=== PATIENT | female | born 1995 | race Caucasian/White ===

== ENCOUNTER 2024-07-11 01:30 | Inpatient (IN) | payer MEDICAID, SELFPAY ==
[2024-07-11] VITALS (119 sets, daily range): BP systolic 105–134; BP diastolic 56–90; PULSE 69–142; RESP 16–100; TEMP 36.4–36.9; O2SAT 96–100; BMI 30.7
[2024-07-11 02:49] LABS: Basophils % (Auto) 0 % (0-2.5); Eosinophils # (Auto) 0.1 Thou/mm3 (0.0-0.5); Eosinophils % (Auto) 1 % (0-10); Hematocrit 31.8 % (36.0-46.0); Hemoglobin 10.7 g/dL (12.0-16.0); Immature Granulocytes % (Auto) 1 % (0-0); Immature Granulocytes Auto 0.06 Thou/mm3 (0.00-0.00); Lymphocytes # (Auto) 2.6 Thou/mm3 (1.0-4.8); Lymphocytes % (Auto) 21 % (10-50); Mean Corpuscular HGB Conc 33.6 g/dl (31.0-37.0); Mean Corpuscular Hemoglobin 26.4 pg (25.0-35.0); Mean Corpuscular Volume 79 fL (80-100); Monocytes # (Auto) 0.7 Thou/mm3 (0.0-0.8); Monocytes % (Auto) 6 % (0-12); Neutrophils % (Auto) 72 % (37-80); Nucleated Red Blood Cell % 0 /100 WBC (0); Platelet Count 143 Thou/mm3 (140-440); RDW Standard Deviation 35.3 fL (36.4-46.3); Red Blood Count 4.05 Miln/mm3 (4.00-5.20); White Blood Count 12.4 Thou/mm3 (3.6-11.0)
[2024-07-11 02:52] LABS: ROM Kit Lot # 57809118; ROM Swab Mixed By: BDR; Rupture of Fetal Membranes Negative (Negative); Swb Mxed in Solvent 1 min? Yes
--- NOTE | 2024-07-11 07:30 | PD.LDHP ---
Documentation for date of: 07/11/24 OB Labor/Induct. HPI History of Present Illness Chief complaint: labor : 2 Para: 1 Term pregnancies: 1 pregnancies: 0 Living children: 1 History of Abortions: Spontaneous and Elective: 0 History of Vaginal deliveries: 1 History of sections: No History of : No Date of last menstrual period: 10/11/23 CADEN: 07/17/24 Gestational Age (weeks): 39 Gestational Age (days): 1 Gestational age based on last menstrual period: 39 History of present illness: 29-year-old 2 para 1 admit to labor and delivery with complaints of contractions since 2300. Patient was followed at [facility] care. First visit was 15 weeks 3. Last period October 11, 2023. Estimated due date July 17, 2024. Patient is O+, antibody screen negative, RPR nonreactive, rubella immune, hepatitis B negative, hep C negative, HIV negative, GC and Chlamydia were negative. GBS negative. Patient did not do 1 hour GTT. GBS was negative. Denies social habits. Denies surgery. Denies History of Present Dating criteria: LMP confirmed by 2nd trimester US Adequate Care: Yes Ultrasounds: normal 1st trimester US Obstetrical complications: none Medical complications: none Labs Labs: Negative: Hepatitis B, HIV, Chlamydia, Gonorrhea and Group Beta Strep Review of Systems Review of Systems Systems Reviewed: All systems reviewed, normal except as documented Past Medical History Surgical History SURGICAL: Negative Section Meds Home Medications and Allergies Home Medications ?Medication ?Instructions ?Recorded ?Confirmed ?Type vitamin no.[id number]-dha 1 cap PO 1XD 06/27/23 06/27/23 History 27 mg iron-1 mg-200 mg capsule Allergies Allergy/AdvReac Type Severity Reaction Status Date / Time No Known Allergies Allergy Verified 06/27/23 12:05 OB Exam Physical Exam Vital signs: Temp Pulse Resp BP Pulse Ox 97.9 F 80 18 125/66 99 07/11/24 01:42 07/11/24 06:16 07/11/24 01:42 07/11/24 06:16 07/11/24 07:28 Narrative: Normal heart rate and rhythm. Lungs clear no wheezes. Gravid abdomen. Gynecoid pelvis. Estimated weight 6 pounds 14 ounces. Vaginal exam on admission was 70%, 5, -2. Vertex. Bag water intact. heart rate category 1 with accelerations and moderate regular contractions Detailed Labor and Delivery Exam Dilation (cm): 5 Effacement (%): 70 Cervix position: mid station: -1 Consistency: soft Presentation: Vertex Cervical ripeness score: 8 Baseline heart rate: 135 monitor accelerations: 15x15 monitor decelerations: None intermodal dispatcher variability: Moderate (11-25) Contraction frequency (min): 3-4 Contraction duration (sec): mod Tachysystole: No Contraction intensity: Moderate OB Results Labs 07/11/24 02:21 Labs: Short CBC 07/11/24 Range/Units 02:21 WBC 12.4 H (3.6-11.0) Thou/mm3 Hgb 10.7 L (12.0-16.0) g/dL Hct 31.8 L (36.0-46.0) % Plt Count 143 (140-440) Thou/mm3 Impressions Impression: labor OB Assessment & Plan Additional Plan Induction method: none Plan: anticipate NVD and consult MD collier
[2024-07-11] MEDS: OXYTOCIN in NS 20 units 20 UNIT/1,000 ML BAG 125 UNIT IV ×2 (08:23→14:22)
[2024-07-11] MEDS: LIDOCAINE HCL 1% 20 ML VIAL INFL (08:24)
[2024-07-11] MEDS: BENZO/LANO/ALOE (Dermoplast) 60 GM CAN 1 SPRAY TOP (09:08)
[2024-07-11] MEDS: KETOROLAC INJ 30 MG/ML VIAL IVP (09:09)
--- NOTE | 2024-07-11 09:34 | PD.LDDELS ---
Data (Man) Data Hx Section: No : 2 Para: 1 Term: 1 : 0 Livin : 0 Delivery Data (Man) Labor Data ROM Date: 07/11/24 ROM Time: 05:20 Rupture Type: SROM Amniotic Fluid: Clear Delivery Data Labor Onset Stage 1 Date: 07/10/24 Labor Onset Stage 1 Time: 23:00 Labor Onset Stage 2 Date: 07/11/24 Labor Onset Stage 2 Time: 08:13 Delivery Date: 07/11/24 Delivery Time: 08:19 Placenta Delivery Date: 07/11/24 Placenta Delivery Time: 08: Delivered by: Marisol Tompkins Delivery nurse: Zoie Luis Other staff at delivery: Nursery Nurse Other staff at delivery: Arlin Apple Delivery Method Delivery: Vaginal Delivery Type: Spontaneous Presentation: Vertex Position: SEMAJ Anesthesia Type Primary Anesthesia: None Delivery Room Medications Other Intrapartum Medications: Yes Placenta Placenta Delivery: Spontaneous Cord Sample: Cord Blood Obtained Episiotomy Episiotomy: None EBL Estimated blood loss (ml): 400 Umbilical Cord Umbilical Vessels: 3 Nuchal Cord: None Body Cord: None Additional Procedures Patient is a 29yo [id number] s/p uncomplicated at term after presenting in active labor, delivering at 0819 on 07/11/2024. She progressed without pitocin augmentation to C/C/0 at which point she began pushing. She did not desire an epidural. With good maternal pushing efforts, infant's head delivered OA and restituted MICKIE. Left anterior shoulder delivered easily followed by posterior shoulder and corpus. had spontaneous cry and was vigorous. Apgars 9/9 . Infant placed on maternal abdomen where nose/mouth were suctioned and dried/stimulated. After approximately 3 minutes (patient desired delayed cord clamping), cord was clamped x2 and cut by FOB. Cord blood collected for typing. With fundal massage and cord traction, placenta delivered spontaneously and intact with 3 vessel centrally inserted cord. Fundal massage performed and IV pitocin given per protocol with fundus then firm at u-2cm and hemostasis noted. Inspection of perineum and vagina revealed small bilateral labial lacerations and a 2nd degree midline perineal laceration which were repaired in routine fashion with 4-0 and 3-0 vicryl, respectively, after anesthetizing with 1% lidocaine- total reapproximation and hemostasis achieved. Small trickle of blood, so sweep just within cervix performed which retrieved only a small clot. All counts correct x2. Mom and infant were doing well when I left the room. Marisol Tompkins MD Data (Man) Data Gender: Male Infant Weight Grams: 3400 1 Minute Total: 9 5 Minute Total: 9
[2024-07-11] MEDS: ACETAMINOPHEN 325 MG TABLET 650 MG PO ×2 (11:13→20:00)
[2024-07-11] MEDS: PRENATAL VITAMIN/FE FUM/FA TABLET 1 TAB PO (11:13)
[2024-07-11] MEDS: IBUPROFEN TAB 400 MG TABLET 800 MG PO (14:24)
[2024-07-11 14:59] LABS: Syphilis Nonreactive (Nonreactive)
[2024-07-11] MEDS: DOCUSATE SOD 100 MG CAPSULE PO (21:23)
[2024-07-12] VITALS: BP 108/68; PULSE 77; RESP 19; TEMP 36.7; O2SAT 99
[2024-07-12 04:05] VITALS: BP 112/72; PULSE 77; RESP 24; TEMP 36.3; O2SAT 98
[2024-07-12] MEDS: IBUPROFEN TAB 400 MG TABLET 800 MG PO (04:28)
[2024-07-12 06:20] LABS: Basophils % (Auto) 0 % (0-2.5); Eosinophils # (Auto) 0.1 Thou/mm3 (0.0-0.5); Eosinophils % (Auto) 0 % (0-10); Hematocrit 26.8 % (36.0-46.0); Immature Granulocytes % (Auto) 1 % (0-0); Immature Granulocytes Auto 0.11 Thou/mm3 (0.00-0.00); Lymphocytes # (Auto) 2.8 Thou/mm3 (1.0-4.8); Lymphocytes % (Auto) 24 % (10-50); Mean Corpuscular HGB Conc 33.6 g/dl (31.0-37.0); Mean Corpuscular Hemoglobin 26.6 pg (25.0-35.0); Mean Corpuscular Volume 79 fL (80-100); Monocytes # (Auto) 0.5 Thou/mm3 (0.0-0.8); Monocytes % (Auto) 5 % (0-12); Neutrophils # (Auto) 8.2 Thou/mm3 (1.8-7.7); Neutrophils % (Auto) 70 % (37-80); Nucleated Red Blood Cell % 0 /100 WBC (0); Platelet Count 124 Thou/mm3 (140-440); Red Blood Count 3.38 Miln/mm3 (4.00-5.20); White Blood Count 11.7 Thou/mm3 (3.6-11.0)
[2024-07-12 07:30] VITALS: BP 114/69; PULSE 79; RESP 19; TEMP 36.6; O2SAT 98
[2024-07-12] MEDS: ACETAMINOPHEN 325 MG TABLET 650 MG PO (08:40)
[2024-07-12] MEDS: DOCUSATE SOD 100 MG CAPSULE PO (08:40)
[2024-07-12] MEDS: PRENATAL VITAMIN/FE FUM/FA TABLET 1 TAB PO (08:41)
[2024-07-12 08:46] VITALS: BP 114/69; PULSE 79; RESP 19; TEMP 36.6; O2SAT 98
[2024-07-12 11:10] VITALS: BP 107/69; PULSE 79; RESP 17; TEMP 36.4; O2SAT 97
--- NOTE | 2024-07-12 11:57 | PD.LDDS ---
DS: Providers Provider Date of admission: 07/11/24 02:06 Primary care physician: Physician No Primary/Family Admitting Provider: Chang Rivas MD Attending Provider on Admission: Diana Pelletier CNM Consults: 07/11/24 09:13 Referral Routine Comment: Attending Provider on DC: Marisol Tompkins MD Discharging Provider: Marisol Tompkins MD DS: Diagnosis Discharge Diagnosis (1) Normal labor and delivery: Status: Acute (2) Anemia, : Status: Acute Problem List Completed Was Problem List Reviewed/Reconciled?: Yes Summary/Hosp Course Brief History: Patient is a 29yo [id number] s/p uncomplicated at term after presenting in labor, delivering at 0819 on 07/11/24. She has had an uncomplicated course, meeting all milestones and feels ready for discharge home. She is ambulating without lightheadedness, tolerating regular diet no n/v, spontaneously voiding without issue. She has no chest pain or shortness of breath. No fevers or chills. Minimal, appropriate discomfort. Vitals normal, benign exam. Hemodynamically stable with no evidence of infection. PP Hgb 9. Rx iron to pharmacy. Status at Discharge Functional status at discharge: independent ambulation Overall status at discharge: patient is back to baseline Time Spent with Patient Time attestation: Total time spent providing and/or coordinating discharge services: Exam Vital Signs Temp Pulse Resp BP Pulse Ox O2 Del Method 97.6 F 79 17 107/69 97 Room Air 07/12/24 11:10 07/12/24 11:10 07/12/24 11:10 07/12/24 11:10 07/12/24 11:10 07/12/24 11:10 Narrative Exam General: well developed, well nourished, no acute distress, conversant Cardiac: normal heart rate Lungs: breathing without distress Abdomen: soft, post-gravid, non-tender, no rebound or guarding, Fundus firm at u-3cm. Extremities: no pain with palpation of calves, trace edema of BLE Discharge Plan Plan Patient Disposition: HOME (Self Care) Patient condition on transfer: Stable Prescriptions/Referrals Prescriptions/Med Rec: New ferrous sulfate 325 mg (65 mg iron) tablet 325 mg PO QDAY Qty: 30 0RF Continued vit #[id number]-dha 27 mg iron-1 mg-200 mg Capsule 1 cap PO 1XD Referrals: No Primary/Family,Physician [Primary Care Provider] - Patient/Caregiver Discharge Instructions Discharge Activity: activity as tolerated Other Discharge Activity Instructions:: vaginal rest and no heavy lifting greater than 10 pounds for 6 weeks Other Discharge Diet Instructions: Regular Education Materials: After a Vaginal Print Language: Pashto Activity Restrictions/Additional Instructions: follow up for visit in 4 weeks, call clinic for appointment Stand Alone Forms: Jasmin Award Info., Patient Portal Info Letter Discharge Order Discharge Orders: Discharge (Routine); Ordered 07/12/24 Ordered By: Marisol Tompkins Planned Discharge Date 07/12/24
== END 2024-07-12 13:35 | disposition home or self-care (01) | DRG 560 ==
LOC: S4SX 09:39 → S4NX 11:48
PROVIDERS: Obstetrics & Gynecology; Admitting Provider Obstetrics & Gynecology; Visit Provider Advanced Practice Midwife
DX: O70.1 Second degree perineal laceration during delivery (principal); O90.81 Anemia of the puerperium; Z37.0 Single live birth; Z3A.39 39 weeks gestation of pregnancy
CPT/HCPCS: 36415; 59025; 84112; 85025; 85461; 86780; 86850; 86900; 86901; J1885; J2590; J2790; J3490; A9270

== ENCOUNTER 2025-02-14 15:07 | Emergency (ER) | payer SELFPAY ==
[2025-02-14 15:44] VITALS: BP 111/69; PULSE 97; RESP 20; TEMP 37.3; O2SAT 98; BMI 32.2
--- NOTE | 2025-02-14 15:46 | XR_ITS ---
Examination: Complete OB ultrasound, less than 14 weeks, transabdominal Date and time of exam: February 14, 2025, 1639 hrs. Indications: Right upper abdominal pain radiating to the back today Technique: Obstetrical ultrasound images less than 14 weeks performed via transabdominal imaging Findings: A normal shaped single intrauterine gestation is present in the uterus. CRL 1.3 cm corresponds to 7 weeks 3 days gestational age Cardiac motion 167 BPM Ultrasonographic survey of visible and placental structures unremarkable. Amniotic fluid volume appears appropriate for this estimated gestational age. Right ovary 2.7 cm arterial flow 20 mm follicular cyst. Left ovary 3.2 cm arterial flow Impression: Viable intrauterine gestation 7 weeks 3 days.
--- NOTE | 2025-02-14 15:46 | XR_ITS ---
Examination: Abdomen sonogram, Limited Date and time of exam: February 14, 2025, 1613 hrs. Indications: Right upper abdominal pain radiating to the back onset today. Technique: Real-time tirado scale transabdominal sonographic images of the upper abdomen obtained. Findings: Normal gallbladder. Normal common bile duct 0.3 cm Pancreatic head 2.6 cm Liver 12.5 cm no focal liver lesions Normal hepatopedal portal venous flow. Patent IVC Impression: Normal gallbladder
--- NOTE | 2025-02-14 15:46 | XR_ITS ---
Examination: Retroperitoneal ultrasound, complete Technique: Multiple high resolution grayscale images of the retroperitoneum obtained, including kidneys and bladder. Exam date and time:February 14, 2025, 1625 hrs. Indications: Right upper abdominal pain radiating to the back beginning today. Findings: Right kidney 10.5 cm cortex 1.4 cm Left kidney 10.2 cm in the cortex 1.0 cm No hydronephrosis or renal calculi. Contracted urinary bladder 61 cc Impression: No hydronephrosis or renal calculi.
--- NOTE | 2025-02-14 15:47 | PD.EDRME ---
Rapid Medical Screening Exam RME Arrival date/time: 02/14/25 15:07 29-year-old female presents to the Emergency Department for complaints of back pain and right flank pain as well as abdominal pain patient reports being approximately 2 months Chief Complaint: Back Pain/Injury Vital signs: Vital Signs Temperature 99.1 F 02/14/25 15:44 Pulse Rate 97 02/14/25 15:44 Respiratory Rate 20 02/14/25 15:44 Blood Pressure 111/69 02/14/25 15:44 Pulse Oximetry (%) 98 02/14/25 15:44 Oxygen Delivery Method Room Air 02/14/25 15:44
[2025-02-14 17:19] LABS: Basophils # (Auto) 0.0 Thou/mm3 (0.0-0.2); Basophils % (Auto) 0 % (0-2.5); Eosinophils # (Auto) 0.0 Thou/mm3 (0.0-0.5); Eosinophils % (Auto) 0 % (0-10); Hematocrit 37.1 % (36.0-46.0); Hemoglobin 13.4 g/dL (12.0-16.0); Immature Granulocytes Auto 0.03 Thou/mm3 (0.00-0.00); Lymphocytes # (Auto) 0.4 Thou/mm3 (1.0-4.8); Lymphocytes % (Auto) 6 % (10-50); Mean Corpuscular HGB Conc 36.1 g/dl (31.0-37.0); Mean Corpuscular Hemoglobin 29.5 pg (25.0-35.0); Mean Corpuscular Volume 82 fL (80-100); Monocytes # (Auto) 0.4 Thou/mm3 (0.0-0.8); Monocytes % (Auto) 8 % (0-12); Neutrophils # (Auto) 4.6 Thou/mm3 (1.8-7.7); Neutrophils % (Auto) 85 % (37-80); Nucleated Red Blood Cell # 0.00 Thou/mm3 (0.00-0.00); Nucleated Red Blood Cell % 0 /100 WBC (0); Platelet Count 155 Thou/mm3 (140-440); RDW Standard Deviation 39.7 fL (36.4-46.3); Red Blood Count 4.54 Miln/mm3 (4.00-5.20); White Blood Count 5.5 Thou/mm3 (3.6-11.0)
[2025-02-14 17:43] LABS: Alanine Aminotransferase 11 U/L (10-49); Albumin, Serum 4.5 gm/dL (3.5-5.0); Albumin/Globulin Ratio 1.8 (1.2-2.2); Alkaline Phosphatase 58 U/L (46-116); Amylase 62 U/L (30-118); Anion Gap 13 (7-16); Aspartate Amino Transferase 13 U/L (0-34); BUN/Creatinine Ratio 10 Ratio (12-20); Bilirubin,Total 0.5 mg/dL (0.3-1.2); Blood Urea Nitrogen 7 mg/dL (9-23); Calcium 10.1 mg/dL (8.3-10.6); Calcium (Corrected) 10.1 mg/dL (8.5-10.1); Carbon Dioxide 19.2 mMol/L (20.0-31.0); Chloride 104 mMol/L (98-107); Creatinine (Component) 0.7 mg/dL (0.6-1.3); Estimated Creatinine Clearance 127.6 mL/min (>60); Globulin 2.5 gm/dL (2.3-3.5); Glucose 87 mg/dL (74-106); Osmolality,Calculated 268 (275-295); Potassium 3.4 mMol/L (3.4-5.1); Sodium 136 mMol/L (136-145); Total Protein 7.0 gm/dL (5.7-8.2); eGFR > 60 See Note
[2025-02-14 18:20] VITALS: BP 100/78; PULSE 89; RESP 21; TEMP 37.2; O2SAT 98
[2025-02-14 18:55] VITALS: BP 106/80; PULSE 86; RESP 19; O2SAT 99
[2025-02-14] MEDS: ONDANSETRON INJ 2 MG/ML INJ 2 ML 4 MG IVP (19:12)
[2025-02-14] MEDS: MORPHINE SULF INJ 4 MG/ML VIAL IVP (19:12)
--- NOTE | 2025-02-14 19:28 | PD.EDADULT ---
ED General RME/HPI General Chief complaint: Back Pain/Injury Stated complaint: BACK PAIN RADIATING TO SHOULDER AND LEG, Time Seen by Provider: 02/14/25 17:44 Arrival date/time: 02/14/25 15:07 RME / HPI RME / HPI narrative: 02/14/25 15:07 29-year-old female presents to the Emergency Department for complaints of back pain and right flank pain as well as abdominal pain patient reports being approximately [address] BUI MAIN ED EVALUATION: Patient EGA of 6-8 weeks , awoke with RUQ/right subcostal/right lower lumbar pain since approximately 10:30 AM. Pain is sharp and constant with burning component lasting throughout the day and radiating down the posterior aspect of the right hip to level of the knee. No urinary or bowel incontinence. No reported paresthesias. Denies strenuous activities. No fever, chills, vomiting, or diarrhea. PMH and PSHx are unremarkable. Patient reports no allergies. Patient is a non-drinker, non-smoker, and denies any drug use. Related Data Home Medications ?Medication ?Instructions ?Recorded ?Confirmed vitamins 1 cap PO 1XD 06/27/23 07/11/24 no.[id number]-dha 27 mg iron-1 mg-200 mg capsule Previous Rx's ?Medication ?Instructions ?Recorded ferrous sulfate 325 mg (65 mg 325 mg PO QDAY #30 tabs 07/12/24 iron) tablet cefdinir 300 mg capsule 300 mg PO BID 5 days #10 caps 02/14/25 hydrocodone 5 mg-acetaminophen 325 1 tab PO Q8H PRN pain #20 tabs 02/14/25 mg tablet prednisone 20 mg tablet 40 mg (2 x 20 mg) PO QDAY 5 days 02/14/25 #10 tabs promethazine 25 mg tablet 25 mg PO TID PRN nausea and 02/14/25 vomiting #20 tabs Allergies Allergy/AdvReac Type Severity Reaction Status Date / Time No Known Allergies Allergy Verified 02/14/25 15:08 Review of Systems Review of Systems Systems Reviewed: All systems reviewed, normal except as documented Past Medical History Past Medical History PSYCHO/SOCIAL: Positive Attention Deficit Disorder and Attention Deficit Hyperactivity Disorder Family History FAMILY HISTORY: Positive Family Psychiatric Problems (autism) ED Exam Narrative Physical exam: GEN. APPEARANCE: The patient is alert awake oriented X-3 in moderate distress, lying down comfortably, does not look ill/toxic. Patient has good eye contact. Patient is cooperative. C/o RLQ/RUQ pain radiating down the posterior right buttock. VITALS: All vitals were reviewed and the pulse ox is 99% on room air which is normal according to my interpretation. HEENT: Normocephalic, atraumatic. Pupils are equal and reactive. Oral mucosa is moist. Patent Nares NECK: Supple, nontender, no thyromegaly, no meningismus, no JVD, no step offs CHEST: Symmetrical, atraumatic, and with equal expansion , Nontender on palpation no deformity and no crepitus. CARDIOVASCULAR: Heart regular rhythm no murmur or gallop rub or extra beats. LUNGS: Clear to auscultation bilaterally with symmetrical chest rise. No laboring tachypnea or wheezing. No intercostal subcostal retraction. No rales and no rhonchi. ABDOMEN: Soft, flat, mild tenderness to palpation of RUQ, marked tenderness, positive Wood's Sign. There are no abnormal masses palpated. Active and normal bowel sounds. EXTREMITIES: Nontender. No edema. No cyanosis. Patient is able to move all 4 extremities well, with full ROM and good CSM. SKIN: Warm and dry, no jaundice or rashes noted. MUSCULOSKELETAL: Mild mobility of back due to pain, TTP of L4-L5 midline extending to the right SI/Ischial tuberosity. NEURO: Patient is CORONEL x 4, Cranial nerves II through XII grossly intact. There is no focal neurologic deficits noted. GCS is 15, PNS and [employer]IAN appear grossly intact. DTR 2+ equal BL L4 and SI, positive straight leg test on right, but negative on the left. No colonus. PSYCHIATRIC: Patient is in normal mood and affect, cooperative, no SI or HI or hallucinations. Course Quality Measures none Orders Category Date Time Status Insert IV NOW Care 02/14/25 19:12 Completed US OB <= 14 weeks fetus Stat Exams 02/14/25 15:46 Completed US abdomen limited Stat Exams 02/14/25 19:39 Completed US gall bladder Stat Exams 02/14/25 15:46 Completed US renal BI Stat Exams 02/14/25 15:46 Completed Amylase Stat Lab 02/14/25 17:07 Completed CBC Stat Lab 02/14/25 17:07 Completed Comprehensive Metabolic Panel Stat Lab 02/14/25 17:07 Completed UA, C/S IF [Urinalysis, C/S if Indicated] Stat Lab 02/14/25 19:16 Completed Urine Culture Stat Lab 02/14/25 19:16 Received Dexamethasone Inj [Decadron Inj] Med 02/14/25 19:45 Discontinued 10 mg IV X1 ONE HYDROcodone*/APAP 5/325 [[place] 5/325] Med 02/14/25 21:14 Discontinued 1 tab PO X1 ONE Metoclopramide Inj [Reglan Inj] Med 02/14/25 21:14 Discontinued 5 mg IVP X1 ONE Morphine* Inj Med 02/14/25 19:00 Discontinued 4 mg IVP X1 ONE Ondansetron Inj [Zofran Inj] Med 02/14/25 18:59 Discontinued 4 mg IVP X1 ONE Sodium Chloride 0.9% 1000 ml [Ns] 1,000 ml Med 02/14/25 19:28 Discontinued IV 999 mls/hr Vital Signs Vital signs: Vital Signs Temperature 99.1 F 02/14/25 15:44 Pulse Rate 97 02/14/25 15:44 Respiratory Rate 20 02/14/25 15:44 Blood Pressure 111/69 02/14/25 15:44 Pulse Oximetry (%) 98 02/14/25 15:44 Oxygen Delivery Method Room Air 02/14/25 15:44 Discharge Plan Plan Patient Disposition: HOME (Self Care) Discharge Disposition comment: Stable Patient condition on transfer: Stable Prescriptions/Referrals Prescriptions/Med Rec: New promethazine 25 mg tablet 25 mg PO TID MDD 3 tabs PRN (Reason: nausea and vomiting) Qty: 20 0RF hydrocodone-acetaminophen 5-325 mg tablet 1 tab PO Q8H MDD 4 tabs PRN (Reason: pain) Qty: 20 0RF cefdinir 300 mg capsule 300 mg PO BID 5 Days Qty: 10 0RF prednisone 20 mg tablet 40 mg PO QDAY 5 Days Qty: 10 0RF No Action vit no.[id number]-ZM-dha 27 mg iron-1 mg-200 mg Capsule 1 cap PO 1XD ferrous sulfate 325 mg (65 mg iron) tablet 325 mg PO QDAY Qty: 30 0RF Referrals: No Primary/Family,Physician [Primary Care Provider] - In 1 week Problem List Clinical Impression: Renal colic, UTI (urinary tract infection), Sciatica Patient/Caregiver Discharge Instructions Discharge Activity: activity as tolerated Other Activity Instructions:: Ice compresses alternating with warm moist heat to the right lower back. Avoid any heavy lifting pushing pulling etc. Education Materials: ED Sciatica, ED Kidney Stone w/ Colic Additional Instructions: Force fluids/medication as directed/alternating warm compresses with cool compress to the right lower lumbar region. Avoid any heavy lifting pushing pulling etc. Follow-up primary care in 3 to 5 days. Return if worsening Print Language: Russian Stand Alone Forms: Jasmin Award Info., Patient Portal Info Letter MDM Narrative MDM hospital course: Scribe Attestation: Chey Tena, am scribing for and in the presence of Dr. Bui. Provider Notation: Although this document has been carefully reviewed, there may still be some phonetic and other typographical errors. These errors are purely grammatical due to imperfections in the software program and should not be construed in any way to compromise the substance of the patient's medical care during this visit. Patient EGA of 6-8 weeks , awoke with RUQ/right subcostal/right lower lumbar pain since approximately 10:30 AM. Pain is sharp and constant with burning component lasting throughout the day and radiating down the posterior aspect of the right hip to level of the knee. Please see PE findings. Lab markers show WBC levels of 5.5, platelets of 155 with left shift without bandemia. Serum chemistries demonstrate slightly low CO2 of 19 with suspected mild acidosis. UA demonstrates ketones, mild blood, and presence of bacteria, although nitrates and leukocyte esterase reaction negative. Patient was hydrated with NS, treated with anti-emetic analgesics, and steroids with mild improvement. Patient additionally received PO NORCO and IV Compazine. Patient underwent multiple studies. Pelvis US shows viable 7.3 IUP with right follicular cyst. No free fluid evident. Limited abdominal US performed which failed to demonstrate hydronephrosis or cholelithiasis. Patient's symptoms may be related to 2 distinct processes, sciatica and renal colic secondary to possible kidney stone. Will differ on advanced imaging at this time given relative risk. Patient will be discharged home on anti-emetic analgesic and instructed to force fluids with close F/U via PMD in 3-5 days. Precautionary instructions issued. Clinical Information Provided by patient Medical Records Reviewed [facility] No prior ED records available for review. Meds/Rx Considered, not Ordered None Labs/Rad/Tests considered, not Ordered None Lab Interpretation Labs: interpreted by me and see narrative above Imaging Imaging interpretation: interpreted by me and see narrative above Radiology reports / interpretation(s): RADIOLOGY Abdomen US: Findings: No sonographic visualization appendix Impression: No sonographic visualization appendix Renal US: Findings: Right kidney 10.5 cm cortex 1.4 cm Left kidney 10.2 cm in the cortex 1.0 cm No hydronephrosis or renal calculi. Contracted urinary bladder 61 cc Impression: No hydronephrosis or renal calculi Gall Bladder US: Findings: Normal gallbladder. Normal common bile duct 0.3 cm Pancreatic head 2.6 cm Liver 12.5 cm no focal liver lesions Normal hepatopedal portal venous flow. Patent IVC Impression: Normal gallbladder US: Findings: A normal shaped single intrauterine gestation is present in the uterus. CRL 1.3 cm corresponds to 7 weeks 3 days gestational age Cardiac motion 167 BPM Ultrasonographic survey of visible and placental structures unremarkable. Amniotic fluid volume appears appropriate for this estimated gestational age. Right ovary 2.7 cm arterial flow 20 mm follicular cyst. Left ovary 3.2 cm arterial flow Impression: Viable intrauterine gestation 7 weeks 3 days. Medication Administration(s) Medication Administration History Discontinued Medications Hydrocodone Bitart/Acetaminophen (Hydrocodone/Apap 5/325 Tablet) 1 tab PO X1 ONE Stop: 02/14/25 21:15 Last Admin: 02/14/25 21:22 Dose: 1 tab Documented By: SM Dexamethasone Sodium Phosphate (Dexamethasone Sod Phos Inj 10 Mg/Ml Vial) 10 mg IV X1 ONE Stop: 02/14/25 19:46 Last Admin: 02/14/25 19:43 Dose: 10 mg Documented By: HUSSAIN Sodium Chloride (Ns) 1,000 mls @ 999 mls/hr IV .Q1H1M ONE Stop: 02/14/25 20:28 Last Infusion: 02/14/25 21:16 Dose: Infused Documented By: Admin: 02/14/25 19:43 Dose: 999 mls/hr Documented By: HUSSAIN Metoclopramide HCl (Metoclopramide Inj 5 Mg/Ml Vial 2 Ml) 5 mg IVP X1 ONE; Protocol Stop: 02/14/25 21:15 Last Admin: 02/14/25 21:22 Dose: 5 mg Documented By: HUSSAIN Morphine Sulfate (Morphine Sulf Inj 4 Mg/Ml Vial) 4 mg IVP X1 ONE Stop: 02/14/25 19:01 Last Admin: 02/14/25 19:12 Dose: 4 mg Documented By: HUSSAIN Ondansetron HCl (Ondansetron Inj 2 Mg/Ml Inj 2 Ml) 4 mg IVP X1 ONE; Protocol Stop: 02/14/25 19:00 Last Admin: 02/14/25 19:12 Dose: 4 mg Documented By: HUSSAIN See above if any Diagnosis Differential diagnosis: Pyelonephritis, Renal Calculi, Billiary colic, GERD Most likely dx, and/or detailed dx discussion: Renal colic, UTI (urinary tract infection), Sciatica Dispositon Disposition: Discharge Home
[2025-02-14 19:37] LABS: Collection Type, Urine Clean Catch
--- NOTE | 2025-02-14 19:39 | XR_ITS ---
Examination: Abdomen sonogram, Limited Date and time of exam: February 14, 2025, 1633 hrs. Indications: Onset right lower abdominal pain today Technique: Real-time tirado scale transabdominal sonographic images of the upper abdomen obtained. Findings: No sonographic visualization appendix Impression: No sonographic visualization appendix
[2025-02-14] MEDS: SODIUM CHLORIDE 0.9% 1000 ML 1,000 ML 999 ML IV (19:43)
[2025-02-14] MEDS: DEXAMETHASONE SOD PHOS INJ 10 MG/ML VIAL IV (19:43)
[2025-02-14 19:45] LABS: Bacteria,Urine 1+; Bilirubin,Urine Negative (Negative); Blood,Urine 1+ (Negative); Clarity,Urine Clear (Clear/Hazy); Color,Urine Yellow (Lt Yel-Yel); Culture Indicated,Urine Yes; Glucose, Urine Negative (Negative); Ketones,Urine 2+ (Negative); Leukocyte Esterase,Urine Negative (Negative); Nitrite,Urine Negative (Negative); PH,Urine 6.0 (5.0-7.0); Protein,Urine Negative (Neg - Trace); RBC,Urine 8 /hpf (0-3); Specific Gravity,Urine 1.027 (1.001-1.035); Squamous Epithelial Cell,Urine 3 /hpf (0-5); Urobilinogen,Urine Negative mg/dL (0.0-1.0); WBC,Urine 1 /hpf (0-5)
[2025-02-14] MEDS: HYDROcodone/APAP 5/325 TABLET 1 TAB PO (21:22)
[2025-02-14] MEDS: METOCLOPRAMIDE INJ 5 MG/ML VIAL 2 ML IVP (21:22)
== END 2025-02-14 21:33 | disposition home or self-care (01) ==
PROVIDERS: Nurse Practitioner Primary Care; Emergency Provider Emergency Medicine
DX: O23.41 Unspecified infection of urinary tract in pregnancy, first trimester (principal); N23 Unspecified renal colic; N39.0 Urinary tract infection, site not specified; M54.40 Lumbago with sciatica, unspecified side; M54.41 Lumbago with sciatica, right side; O99.891 Other specified diseases and conditions complicating pregnancy; Z3A.08 8 weeks gestation of pregnancy
CPT/HCPCS: 36415; 76705; 76770; 76801; 80053; 81001; 82150; 85025; 87086; 96361; 96374; 96375; 99283; J1100; J2270; J2405; J2765; J7030; A9270